=== PATIENT | male | born 1995 | race Caucasian/White ===

== ENCOUNTER 2020-03-15 03:45 | Emergency (ER) | payer SELFPAY ==
[2020-03-15 03:58] VITALS: BP 149/90; PULSE 110; RESP 18; TEMP 37.2; O2SAT 100
[2020-03-15] MEDS: KETOROLAC (*BKC) 60 MG/2 ML VIAL IM (04:41)
--- NOTE | 2020-03-15 04:48 | ED.URI ---
HPI - URI/Sore Throat General Chief Complaint: Upper Respiratory Infection Stated Complaint: s/t Time Seen by Provider: 03/15/20 04:01 Source: patient Mode of arrival: ambulatory Limitations: no limitations History of Present Illness HPI Narrative: 24 yo male who presents for evaluation of sore throat. Patient reports symptoms of pain with swallowing and swollen throat x 2 days. He states his sore throat is worse at night. During the day he does notice it as much. He also reports his girlfriend noticed some white spots in back of throat. He is unsure if he has had fever. He denies nasal congestion, cough or sob. He denies sick contacts. MD elicited complaint: sore throat Onset (ago): day(s) Consistency: progressively worsening Able to tolerate fluids by mouth: Yes Exacerbating factors: swallowing Associated symptoms: voice changes and headache Treatments prior to arrival: cold medicine Related Data Allergies Allergy/AdvReac Type Severity Reaction Status Date / Time No Known Allergies Allergy Mild Unverified 01/30/10 17:40 Review of Systems Review of Systems: All systems reviewed & are unremarkable except as noted in HPI and below Constitutional: Constitutional: Denies chills, Denies fever(s) and Denies weakness ENT: Denies dysphagia, Denies dizziness, Denies nasal congestion and Reports sore throat Cardiovascular: Cardiovascular: Denies chest pain and Denies radiating jaw, neck or arm pain Respiratory: Respiratory: Denies cough and Denies dyspnea Gastrointestinal: Gastrointestinal: Denies abdominal pain and Reports nausea PMFSH Past Medical History Medical History (Updated 03/15/20 @ 05:25 by Siomara Ramsey MD) No significant medical problems Social History Social History (Updated 03/15/20 @ 04:51 by Siomara Ramsey MD) Smoking status: Current every day smoker Alcohol intake: current Substance use type: marijuana Gender identity (if verbalized by the patient): Male Exam Const: General: no acute distress and alert Orientation/consciousness: patient oriented x3 HENMT: Ears: external ears normal and TM's normal bilaterally General nose exam: Normal external nose present Face and sinus: normal facial exam and face symmetric Mouth: Yes moist mucous membranes, Yes tongue abnormal with white coating and Yes other (dry lips) Teeth and gingiva: gingiva normal Throat: uvula midline and abnormal tonsil bilateral erythema and exudates Eyes: EOM: EOMs intact bilaterally Chest: Chest palpation & inspection: normal inspection of the chest Resp: Effort & Inspection: normal respiratory effort Auscultation: clear to auscultation bilaterally Skin: General skin exam: normal color Rashes: no rashes Neuro: General: patient oriented x3 and moves all extremities Course Reevaluation(s) Reevaluation #1: Patient has negative rapid strep swab. I discussed with patient most cases of pharyngitis are viral so he will just be treated with antiinflammatories. No antibiotics needed at this time. Date: 03/15/20 Time: 05:14 Vital Signs Vital signs: Vital Signs Temperature 98.9 F 03/15/20 03:58 Pulse Rate 110 H 03/15/20 03:58 Respiratory Rate 18 03/15/20 03:58 Blood Pressure 149/90 H 03/15/20 03:58 Pulse Oximetry 100 03/15/20 03:58 Temperature 98.8 F 03/15/20 05:35 Pulse Rate 100 03/15/20 05:35 Respiratory Rate 18 03/15/20 05:35 Blood Pressure 138/86 03/15/20 05:35 Pulse Oximetry 99 03/15/20 05:35 MDM - URI/Sore Throat Lab Data Labs: Strep Screen Presumptive Negative *(Reference Range: Negative)* Discharge Plan Discharge Clinical Impression: Oral thrush Pharyngitis Qualifiers: Pharyngitis/tonsillitis etiology: other specified organisms Qualified Code(s): J02.8 - Acute pharyngitis due to other specified organisms Patient Disposition: Home, Self-Care Condition: Stable Instructions: Antibiotic Form, Pharyngi
[2020-03-15 05:35] VITALS: BP 138/86; PULSE 100; RESP 18; TEMP 37.1; O2SAT 99
== END 2020-03-15 05:37 | disposition home or self-care (01) ==
PROVIDERS: Emergency Provider General Practice
DX: J02.8 Acute pharyngitis due to other specified organisms (principal); F17.200 Nicotine dependence, unspecified, uncomplicated; B37.0 Candidal stomatitis
CPT/HCPCS: 87081; 87880; 96372; 99284; J1100; J1885

== ENCOUNTER 2020-09-19 22:06 | Emergency (ER) | payer SELFPAY ==
[2020-09-19 22:05] VITALS: BP 129/80; PULSE 84; RESP 15; TEMP 36.5; O2SAT 95
--- NOTE | 2020-09-19 22:20 | ED.OVERDOSE ---
HPI - Overdose General Chief Complaint: Overdose Stated Complaint: passed out after using herion Source: patient Mode of arrival: ambulatory Limitations: no limitations History of Present Illness HPI Narrative: Patient is a 25-year-old male who presents after overdose on heroin. Per EMS, patient is alert and oriented x4 but lethargic. Patient reports he has used heroin only 3 times, third time tonight. Patient unsure how much he used. Patient falling asleep during assessment. MD complaint: accidental overdose Related Data Allergies Allergy/AdvReac Type Severity Reaction Status Date / Time No Known Allergies Allergy Mild Unverified 01/30/10 17:40 Review of Systems Review of Systems: Narrative: CONSTITUTIONAL: Denies fever, chills, or sweats. EYES: Denies visual changes, redness, or discharge. ENT: Denies rhinorrhea, congestion, sore throat, or otalgia. CARDIOVASCULAR: Denies chest pain, palpitations, or edema. RESPIRATORY: Denies cough or dyspnea. GASTROINTESTINAL: Denies abdominal pain, nausea, vomiting, or diarrhea. GENITOURINARY: Denies dysuria or hematuria. SKIN: Denies rash or itching. MUSCULOSKELETAL: Denies back pain, joint pain, or myalgia. NEUROLOGIC: Denies headache, numbness, dizziness, or weakness. PSYCHIATRIC: Denies anxiety or depression. [facility] Past Medical History Medical History (Updated 09/19/20 @ 23:02 by DANIELLE Chacon) No significant medical problems Surgical History Surgical History No significant past surgical history Social History Social History (Updated 09/19/20 @ 22:46 by DANIELLE Chacon) Smoking status: Current every day smoker Alcohol intake: current Substance use: current Substance use type: marijuana and heroin Living arrangements: with family Occupation/Education: occupation Gender identity (if verbalized by the patient): Male Exam Narrative: Exam Narrative: GENERAL: Well-appearing, well-nourished, and in no acute distress. HEAD: Normocephalic, atraumatic. EYES: No redness or drainage. ENT: Mucous membranes pink and moist. CHEST: No respiratory distress. Clear to auscultation. HEART: Regular rate and rhythm. No murmur appreciated. Normal peripheral pulses. GI: Soft, nontender without rebound, or guarding. No distention. Bowel sounds normal in all quadrants. EXTREMITIES: Normal range of motion. No edema. SKIN: Warm, dry, no rash. NEURO: No focal deficits. Alert and oriented x3. Gait steady. PSYCH: Normal affect. No signs of depression or anxiety. Course Vital Signs Vital signs: Vital Signs Temperature 36.5 C 09/19/20 22:05 Pulse Rate 84 09/19/20 22:05 Respiratory Rate 15 09/19/20 22:05 Blood Pressure 129/80 09/19/20 22:05 Pulse Oximetry 95 09/19/20 22:05 Temperature 36.5 C 09/19/20 22:05 Pulse Rate 84 09/19/20 22:05 Respiratory Rate 15 09/19/20 22:05 Blood Pressure 129/80 09/19/20 22:05 Pulse Oximetry 95 09/19/20 22:05 MDM - Overdose MDM Narrative Medical decision making narrative: Patient given Narcan upon arrival in ED. Patient A and O x 4, denies any complaints. Patient's family at bedside and concerned. Discussed with patient the need to stop using illicit substances. Patient agrees and is willing to contact drug abuse counselors. Patient is stable for discharge to home with a ride from family. Differential Diagnosis Differential diagnosis: Likely poisoning by opiate or related narcotic, drug overdose and accidental drug ingestion Critical Care Time Critical Care Time Critical Care Time: No Discharge Plan Discharge Clinical Impression: Drug overdose Qualifiers: Encounter type: initial encounter Injury intent: accidental or unintentional Qualified Code(s): T50.901A - Poisoning by unspecified drugs, medicaments and biological substances, accidental (unintentional), initial encounter Patient Disposition: Home, Self-Care Cond
[2020-09-19] MEDS: NALOXONE HCL 0.4 MG/ML VIAL IV PUSH (22:32)
[2020-09-19] MEDS: SODIUM CHLORIDE 0.9% IV 2,000 ML 999 ML IV CONT (22:36)
[2020-09-19 22:37] LABS: Basophils Absolute Auto 0.1 K/mm3 (0.0-0.1); Basophils Percent Auto 1.2 % (0.2-1.2); Eosinophils Absolute Auto 0.8 K/mm3 (0-0.3); Eosinophils Percent Auto 8.4 % (0-4.4); Hematocrit 45.5 % (42.0-52.0); Hemoglobin 15.5 g/dL (14.0-18.0); Immature Granulocyte Absolute 0.02 K/mm3 (0.00-0.031); Immature Granulocyte Percent A 0.2 % (0-0.5); Lymphocytes Absolute Auto 4.22 K/mm3 (0.9-3.2); Lymphocytes Percent Auto 45.1 % (18.3-44.2); Mean Corpuscular HGB Conc 34.1 g/dl (32-36); Mean Corpuscular Hemoglobin 31.2 pg (26-34); Mean Corpuscular Volume 91.5 fl (80-100); Mean Platelet Volume 9.7 fl (7.4-10.4); Monocytes Absolute Auto 0.7 K/mm3 (0.1-0.6); Monocytes Percent Auto 7.8 % (2.6-8.5); Neutrophils Absolute Auto 3.5 K/mm3 (1.3-6.7); Neutrophils Percent Auto 37.3 % (45.5-73.1); Platelet Count Result 254 k/mm3 (150-375); Red Blood Count 4.97 M/mm3 (4.6-6.20); Red Cell Distribution Width 12.6 % (11.5-14.5); White Blood Count 9.4 K/mm3 (4.5-10.0)
[2020-09-19 23:25] LABS: Alanine Aminotransferase 15 U/L (4-50); Albumin Level 4.4 g/dL (3.5-5.1); Alkaline Phosphatase 62 U/L (38-126); Anion Gap 9 mmol/L (8-16); Aspartate Amino Transferase 23 U/L (17-59); Bilirubin,Total 0.6 mg/dL (0.2-1.3); Blood Urea Nitrogen 15 mg/dL (9-20); Calcium 8.4 mg/dL (8.4-10.2); Carbon Dioxide 32 mmol/L (22-30); Chloride 100 mmol/L (98-107); Estimated CRCL calculation 117 ml/min; Estimated Glomerular Filt Rate > 60; Glucose 114 mg/dL (75-110); Potassium 3.9 mmol/L (3.4-5.0); Sodium 141 mmol/L (137-145)
--- NOTE | 2020-09-19 23:49 | PC.NURSE ---
LATE ENTRY; 09/19/2020 AT APPROX 2335; PT REFUSING 2ND LITER OF ORDERED NS BOLUS. PT STATES HE JUST WANTS TO GO HOME SO HE CAN GO TO WORK TOMORROW. PT'S FATHER, AT BEDSIDE AGREES TO TAKE PT HOME AT THIS TIME.
== END 2020-09-19 23:40 | disposition home or self-care (01) ==
PROVIDERS: Emergency Provider Nurse Practitioner
DX: T40.1X1A Poisoning by heroin, accidental (unintentional), initial encounter (principal); F17.210 Nicotine dependence, cigarettes, uncomplicated
CPT/HCPCS: 36415; 80053; 85025; 96361; 96374; 99284; J2310; J7030